=== PATIENT | female | born 1965 | race Caucasian/White ===

== ENCOUNTER 2019-08-13 07:18 | Day surgery (SDC) | payer OTHER ==
[2019-08-13] MEDS ORDERED: PROPOFOL 60 ML (10:47)
== END 2019-08-13 18:06 | disposition home or self-care (01) ==
LOC: GIL 07:18
DX: D12.5 Benign neoplasm of sigmoid colon (principal); K64.8 Other hemorrhoids; K57.30 Diverticulosis of large intestine without perforation or abscess without bleeding; R73.03 Prediabetes; F17.200 Nicotine dependence, unspecified, uncomplicated
CPT/HCPCS: 45380; 88305